=== PATIENT | female | born 1940 | race African-American/Black ===

== ENCOUNTER 2017-08-13 20:25 | Emergency (ER) | payer BC, MEDICARE ==
[~2017-08-13] VITALS: Ht 154.9 cm; Wt 58.0 kg
[2017-08-13 22:20] VITALS: BP 200/105
== END 2017-08-13 23:29 | disposition home or self-care (01) ==
LOC: ER 21:48
DX: R06.00 Dyspnea, unspecified (principal); I12.0 Hypertensive chronic kidney disease with stage 5 chronic kidney disease or end stage renal disease; N18.6 End stage renal disease; H40.9 Unspecified glaucoma; Z99.2 Dependence on renal dialysis
CPT/HCPCS: 71045; 93005; 99284; 99285

== ENCOUNTER 2017-08-20 19:11 | Emergency (ER) | payer BC ==
[~2017-08-20] VITALS: Ht 152.4 cm; Wt 68.0 kg
[2017-08-20 21:39] VITALS: BP 193/97
== END 2017-08-20 21:39 | disposition home or self-care (01) ==
LOC: ER 20:28
DX: R06.00 Dyspnea, unspecified (principal); E78.00 Pure hypercholesterolemia, unspecified; I12.0 Hypertensive chronic kidney disease with stage 5 chronic kidney disease or end stage renal disease; N18.6 End stage renal disease; F41.9 Anxiety disorder, unspecified; Z86.73 Personal history of transient ischemic attack (TIA), and cerebral infarction without residual deficits; Z99.2 Dependence on renal dialysis
CPT/HCPCS: 71045; 99283